=== PATIENT | male | born 1980 | race Caucasian/White ===

== ENCOUNTER 2016-07-04 17:51 | Emergency (ER) | payer SELFPAY ==
[~2016-07-04] VITALS: Ht 172.7 cm; Wt 70.0 kg
[2016-07-04 17:59] VITALS: BP 150/91; PULSE 90; RESP 14; TEMP 97.6; O2SAT 100
--- NOTE | 2016-07-04 19:59 | PD ---
HPI Chief Complaint: Skin Problem Time Seen by Provider: 19:55 Travel History International Travel<30 days: No Contact w/Intl Traveler<30days: No Traveled to known affect area: No History of Present Illness HPI Patient comes in complaining of painful sunburn on his right lower leg that began 5 days ago. Patient states he's been keeping it clean with peroxide, but feels its getting worse and becoming more painful. Patient denies anything making it better. Pain is worse with walking. Denies any fevers, nausea or vomiting, or other complaints. Patient reports his tetanus shot is up-to-date. Patient is also asking for something to eat as he states he has not ate for 2 days. [facility] Past Medical History Medical History: Denies Significant Hx Social History Alcohol Use: No Tobacco Use: Yes Substance Use: No Allergies-Medications (Allergen,Severity, Reaction): Coded Allergies: No Known Allergies (Unverified , 07/04/16) Reported Meds & Prescriptions Reported Meds & Active Scripts Active Bactrim DS (Sulfamethoxazole-Trimethoprim) 800-160 Mg Tab 1 Tab PO BID Naprosyn (Naproxen) 500 Mg Tab 500 Mg PO Q12HR PRN Review of Systems Except as stated in HPI: all other systems reviewed are Neg Physical Exam Narrative GENERAL: Well-developed, well nourished, in no acute distress, and non-ill appearing. SKIN: Warm and dry. Patient is in a healing abrasion noted right distal leg with mild erythematous surrounding it. It is mildly tender to palpation. There is no crepitus or drainage. HEAD: Atraumatic. Normocephalic. EYES: Pupils equal and round. EOMI. No scleral icterus. No injection or drainage. ENT: No nasal bleeding or discharge. Mucous membranes pink and moist. NECK: Trachea midline. Supple. No nuclear rigidity. CARDIOVASCULAR: Dorsal pulses 2+ intact, equal bilaterally. Capillary refill less than 2 seconds. RESPIRATORY: No accessory muscle use. No respiratory distress. MUSCULOSKELETAL: No obvious deformities. No clubbing. No cyanosis. No edema. Full range of motion. NEUROLOGICAL: Awake and alert. No obvious cranial nerve deficits. Motor grossly within normal limits. Normal speech. PSYCHIATRIC: Appropriate mood and affect; insight and judgment normal. Data Data Last Documented VS Vital Signs Date Time Temp Pulse Resp B/P Pulse Ox O2 Delivery O2 Flow Rate FiO2 07/04/16 17:59 97.6 90 14 150/91 100 Room Air Orders Sulfamet-Trimeth Ds 800-160 Mg (Bactrim (07/04/16 20:00) Naproxen (Naprosyn) (07/04/16 20:00) Silver Sulfadia 1% Crm (50 Gm) (Silvaden (07/04/16 20:00) MDM Medical Decision Making Medical Screen Exam Complete: Yes Emergency Medical Condition: Yes Differential Diagnosis Sunburn, abrasion, wound infection, wound check, other Narrative Course The patient has cellulitis. There is no evidence of necrotizing fasciitis/ Forneys at this time, pain is proportional and no crepitus is noted. There is no evidence of abscess as well at this time. The patient will be discharged on antibiotics. The patient was given signs and symptoms warnings for worsening infection, such as spreading of redness, increasing pain, and/or swelling, associated heat, or fever and instructed to return immediately if these signs or symptoms worsen. The patient is to follow up with physician in 2 days for recheck or return here in 2 days for recheck if unable to establish outpatient follow up. Sooner if worsens or as needed. The patient agrees with plan. Patient in no obvious distress upon re-evaluation. Patient was asked if they wanted to speak to my attending, which the patient did not wish to do at this time. Any questions/concerns in reference to patient diagnosis/condition discussed and clarified prior to patient's discharge. Reinforced sheer importance of close follow up with patient's primary physician or primary care clinic. Instructed patient to return to ED immediately, if symptoms return/ worsen. Pt showed understanding of above instructions. Further instructions and recommendations were detailed in discharge paperwork. Pt ambulated without difficulty out of ED at discharge. Diagnosis Primary Impression: Cellulitis Qualified Code: L03.115 - Cellulitis of right lower extremity Patient Instructions: Acute Wound Care (ED), Cellulitis (ED), General Instructions Additional Instructions: Follow-up with your primary care physician or return here in 2 days for recheck. Take all medication as prescribed. Return to the emergency department if symptoms get worse. Med/Other Pt SpecificInfo: Prescription(s) given Scripts Sulfamethoxazole-Trimethoprim (Bactrim DS)800-160 Mg Tab1 Tab PO BID #20 TAB Ref 0 Prov:Rob Albright MD 07/04/16 Naproxen (Naprosyn)500 Mg Hyy245 Mg PO Q12HR PRN (PAIN SCALE 1 TO 10) #14 TAB Ref 0 Prov:Rob Albright MD 07/04/16 Disposition: 01 DISCHARGE HOME Condition: Stable Scout Brenner Jul 04, 2016 19:59
[2016-07-04] MEDS ORDERED: SULFAMETHOXAZOLE-TRIMETHOPRIM DS 800-160 MG TAB PO ONE (20:00)
[2016-07-04] MEDS ORDERED: SILVER SULFADIAZINE 1% CR 50 GM JAR TOPICAL ONE (20:00)
[2016-07-04] MEDS ORDERED: NAPR500 PO (20:00)
[2016-07-04] MEDS ORDERED: NAPROXEN 500 MG TAB PO ONE (20:00)
[2016-07-04] MEDS ORDERED: BACT800T5 PO (20:00)
== END 2016-07-04 20:38 | disposition home or self-care (01) ==
LOC: NEPB 17:51
DX: L03.115 Cellulitis of right lower limb (principal); L55.9 Sunburn, unspecified; Z72.0 Tobacco use
CPT/HCPCS: 99283